=== PATIENT | male | born 1965 | race Caucasian/White ===

== ENCOUNTER 2024-01-27 12:52 | Outpatient (CLI) | payer OTHER, SELFPAY ==
--- OUTSIDE RECORDS SUMMARY | 2024-01-27 13:09 | XMS_ITS | Data Portability ---
Author Organization [place] [employer] [place] [employer], Main Office Address [address] [place] [address] Assessment Encounter Date Assessment Date Assessment LastModified by Organization Details LastModified Time 08/31/2022 08/31/2022 His last A1c was 5.2 he was 6 months ago he states with his insurance plan they will only let him do blood work once a year I will obtain a CT scan of the abdomen and pelvis will try to get him approved for Ozempic if we do I would like to stop his so far urea and see him in 4 weeks if he is not improved I will see him in 4 months will get the records from his previous physician richard Not available 08/31/2022 22:34:15 09/17/2022 09/17/[address] scans could be from polycystic kidney I will check with Renal see me in 3 months [email or web address] Not available 09/17/2022 16:04:17 12/23/2022 12/23/2022 Will continue current therapy will follow-up with me in 4-6 months. Chronic medical problems appear stable [email or web address] Not available 12/24/2022 15:09:39 Plan of Treatment Reminders Order Date Submit Date Provider Last Modified By Organization Details Last Modified Time Details Appointments None recorded. Lab None recorded. Referral None recorded. Procedures None recorded. Surgeries None recorded. Imaging CT, abdomen + pelvis, w/ contrast 2022 023 [facility], [address] [place] [address] [place], [address], 12:38:54 Medication Orders Ozempic 0.25 mg or 0.5 mg (2 mg/3 mL) subcutaneou s pen injector 2022 023 [email or web address] [facility] [place], [address], 3 15:46:46 Ozempic 1 mg/dose (4 mg/3 mL) subcutaneou s pen injector [address] [facility] [address] [place], [address], 3 15:09:06 lisinopril 10 mg tablet [address] [facility] [address] [place], [address], 3 11:12:49 omeprazole 40 mg capsule,del ayed release [address] [facility] [address] [place], [address], 3 11:12:49 Patient TargetsNo targets recorded. Patient InstructionsNo instructions recorded. Reason for Referral None Reported. Results Created Date Observation Date Name Description Value Unit Range Abnormal Flag Note LastModifiedBy Organization Detail LastModifiedTime 09/07/1909/06/2022 CREAT ININE , I-STA T creatinine 1.3 mg/dL 0.6-1. 3 Perfo rmed at: [facility] [address] [facility] [address] Not Available [facility] (Lab) [address] [place], [address], 09/06/2022 14:16:49 09/07/[address], abdom en + pelvi s, w/ contr ast [facility] [address] [place] [address] Patien t Name: LAUREEN GERONIMORACHEL ion #: [id number] Sex: M : 1965 3 0 Dictat ed By: Marco Antonio gibson Attend ing Physic andrew: MARCO ANTONIO KIM Orderi ng Physic andrew: MARCO ANTONIO KIM Exam Date: 2022 09:53 AM Exam Name: CT ABDOME N/PELV IS W Admitt ing Diagno sis(es ): CLINIC AL INFORM ATION: Abdomi nal pain and bloati ng. TECHNI QUE: Axial CT images of the abdome n and pelvis were obtain ed after the uneven tful admini strati on of 100 mL Isovue [address] Patien t also ingest ed [address] prior to the examin ation. Abdullahi l and sagitt al reform atted images were obtain ed, review ed, and stored . One or more of the follow ing dose reduct ion techni ques were used: Automa nina exposu re contro l. Adjust ment of mA and/or kV accord ing to patien t size. CTDIvo l = 15.87 mGy DLP = 1031.4 mGy-cm COMPAR KASHIF: Prior CT of the chest, abdome n, and pelvis dated 03/24/19 12. FINDIN GS: Lung bases: Lung bases are clear. Liver: Hepati c steato sis. Biliar y: Small calcif ied gallst ones layeri ng depend ently at the gallbl adder neck. Spleen : Unrema rkable . Pancre as: Unrema rkable . No inflam matory change s, ductal dilata tion, or mass identi fied. Adrena l glands : Unrema rkable . No mass. Kidney s: No hydron ephros is. Multip le bilate ral renal cysts, with the larges t at the inferi or pole of the right kidney measur ing up to 8.[address] dimens ion. Aorta/ Vascul ar: No aneury sm or signif icant calcif icatio n. Retrop eriton eum: No mass or lympha denopa thy. Bowel/ mesent gus: No small bowel obstru ction. No free air or free fluid. Append ix is normal . Scatte red coloni c divert icula withou t adjace nt inflam matory change s to sugges t divert iculit is. Pelvic organs : Grossl y unrema rkable . Bladde r: Unrema rkable . No mass. Abdomi nal wall: No mass or hernia . Bones: No fractu re or focal intrao sseous lesion . Mild grade 1 bhavana listhe sis Page 1 [facility] [address] [place] [address] Patien t Name: RACHEL MOREJON ion #: [id number] Sex: M : 1965 3 0 Dictat ed By: Marco Antonio gibson Attend ing Physic andrew: MELVA JONES Orderi Physic andrew: MARCO ANTONIO KIM Exam Date: 2022 09:53 AM Exam Name: CT ABDOME N/PELV IS W Admitt ing Diagno sis(es ): of L5 on S1 with chroni c bilate ral pars defect s at L5. IMPRES BRE: 1. Cholel ithias is. 2. Bilate ral renal cysts. 3. Hepati c steato sis. 4. Coloni c divert iculos is with no CT eviden ce for divert iculit is. 5. Additi onal nonacu te findin gs as detail ed above. Electr onical ly Signed by: Marco Antonio gibson at 2022 11:36: 36 AM Page 2 [email or web address] [facility] (Imaging) [address] [place], [address], 09/09/2022 12:01:37 09/14/19 23 05/26/2016 CT, chest , w/o contr ast No observ ation record ed. [address] [facility] [address], [place], [address], 09/17/2022 14:01:39 Result Notes None recorded. Problems Name Problem SNOMED Code Status Onset Date Resolution Date Notes Provider Name and Address Organization Details Recorded Time Abdominal pain 15815293 Active 2022 Not Available [employer] 16:58:45 Type 2 diabetes mellitus without complication 344662352 Active 2022 Not Available [facility] 3 16:58:46 Essential hypertension 35960441 Active 2022 Not Available [facility] 3 16:58:46 Hyperlipidemi a 38160919 Active 2022 Not Available [facility] 3 16:58:46 Anxiety 91273000 Active 2022 Not Available [facility] 3 16:58:46 Cyst of kidney 308999576 Active 2022 Not Available [facility] 3 16:58:46 Problem Notes None recorded. Procedures Surgical History Date Name Laterality Status Provider Name and Address Organization Details Recorded Time Sinus Surgery completed CJ Bella [employer] [place] [employer] [facility] 08/31/2022 14:43:27 Neck Surgeries completed CJ Bella [place] [employer] [place] [employer] [facility] 08/31/2022 14:43:37 Colonoscopy completed CJ Bella [place] [employer] [place] [employer] [facility] 08/31/2022 14:43:57 Endoscopy completed CJ Bella [employer] [facility] 08/31/2022 14:44:09 Shoulder completed Nicole Velasquez RASHAADRomel [employer] [facility] 08/31/2022 14:44:19 Imaging Results Imaging Date Name Status LastModified by Organiz ation Details LastModified Time 09/06/2022 CT, abdomen + pelvis, w/ contrast completed [email or web address] [facility] (Imaging) [address] [place], [address], 09/09/2022 12:01:37 05/26/2016 CT, chest, w/o contrast completed [email or web address] [facility] [address] [facility], [place], [address], 09/17/2022 14:01:39 Procedure Notes None recorded. Medical Equipment None Reported. Allergies No known drug allergies Medications Name Sig Start Date Stop Date Status Note LastModified by Organization Details LastModified Time metformin 500 mg tablet Take 1 tablet twice a day by oral route. 12/23 completed Not Available Not Available Not Available hydrocodone 5 mg-acetamin ophen 325 mg tablet 08/31 completed Not Available Not Available Not Available glipizide 10 mg tablet Take 1 tablet twice a day by oral route. 12/23 completed Not Available Not Available Not Available omeprazole 40 mg capsule,del ayed release Take 1 capsule every day by oral route. 2022 active Not Available Not Available Not Avai lable amlodipine 10 mg tablet TAKE 1 TABLET BY MOUTH DAILY 11/08 completed Not Available Not Available Not Available lisinopril 10 mg tablet Take 1 tablet every day by oral route. 2022 active Not Available Not Available Not Avai lable lorazepam 1 mg tablet Take 1 tablet 3 times a day by oral route for 30 days. active Not Available Not Available No t Available fluticasone propionate 50 mcg/actuati on nasal spray,suspe nsion USE 2 SPRAY(S) IN EACH NOSTRIL ONCE DAILY active Not Available Not Available No t Available Ozempic 1 mg/dose (4 mg/3 mL) subcutaneou s pen injector Inject by subcutane ous route for 28 days. active Not Available Not Available No t Available Ozempic 0.25 mg or 0.5 mg (2 mg/3 mL) subcutaneou s pen injector INJECT 0.5MG WEEKLY FOR 4 WEEKS. 12/23 completed Not Available Not Available Not Available Vitals Date Recorded Body weight Body mass index (BMI) Body height Body temperature Heart rate Systolic blood pressure Diastolic blood pressure Provider Name and Address Organization Details Last Updated DateTime 3 399786. 13 g 29.1 kg/m2 195.58 cm 99.3 [degF] 77 /min 122 mm[Hg] 82 mm[Hg] CJ Bella Myrio [employer] 3 14:47:31 Date Recorded Body height Body mass index (BMI) Body weight Body temperature Heart rate Systolic blood pressure Diastolic blood pressure Provider Name and Address Organization Details Last Updated DateTime 3 195.58 cm 28.9 kg/m2 150600. 54 g 97.2 [degF] 74 /min 122 mm[Hg] 74 mm[Hg] CJ Bella [employer] [facility] [employer] 3 13:09:35 Date Recorded Body height Body mass index (BMI) Body weight Body temperature Heart rate Systolic blood pressure Diastolic blood pressure Provider Name and Address Organization Details Last Updated DateTime 3 195.58 cm 27.5 kg/m2 800359. 43 g 98.2 [degF] 82 /min 126 mm[Hg] 74 mm[Hg] Yanique Montemayor, [facility] [employer] 3 15:49:41 Social History Question Answer Notes LastModified by Organizat ion Details LastModified Time Tobacco Smoking Status Never Smoker CJ Bella, [facility] [employer] 08/31/2022 14:40:55 Do You Have An Advance Directive? No [email or web address] Information not available 08/31/2022 What Is Your Level Of Alcohol Consumption? Occasional [email or web address] Information not available 08/31/2022 Is Blood Transfusion Acceptable In An Emergency? Yes [email or web address] Information not available 08/31/2022 What Is Your Level Of Caffeine Consumption? Moderate [email or web address] Information not available 08/31/2022 What Is Your Code Status? DNI [email or web address] Information not available 08/31/2022 In The 14 Days Before Symptom Onset, Have You Had Close Contact With A Laboratory-confi rmed COVID-19 While That Case Was Ill? No [email or web address] Information not available 08/31/2022 In The 14 Days Before Symptom Onset, Have You Had Close Contact With A Person Who Is Under Investigation For COVID-19 While That Person Was Ill? No [email or web address] Information not available 08/31/2022 Are You Currently Employed? No RETIRED Information not available 08/31/2022 What Type Of Diet Are You Following? REGULAR [email or web address] Information not available 08/31/2022 What Is The Highest Grade Or Level Of School You Have Completed Or The Highest Degree You Have Received? OL96742-2 [email or web address] Information not available 08/31/2022 Have There Been Any Changes To Your Family Or Social Situation? No [email or web address] Information not available 08/31/2022 What Is The Fluoride Status Of Your Home? Unknown [email or web address] Information not available 08/31/2022 Do You Use Insect Repellent Routinely? No [email or web address] Information not available 08/31/2022 Where Do You Live? SingleLevelHouse [email or web address] Information not available 08/31/2022 Do You Have A Medical Power Of Mixing And Dispensing Supervisor? No [email or web address] Information not available 08/31/2022 What Was The Date Of Your Most Recent Tobacco Screening? 12/23/2022 [email or web address] Information not available 12/23/2022 How Many Children Do You Have? 0 [email or web address] Information not available 08/31/2022 Do You Have Any Pets? Yes [email or web address] Information not available 08/31/2022 What Is Your Relationship Status? Information not available 08/31/2022 Do You Use Your Seat Belt Or Car Seat Routinely? Yes [email or web address] Information not available 08/31/2022 Do You Have Smoke And Carbon Monoxide Detectors In Your Home? Yes [email or web address] Information not available 08/31/2022 Are You Passively Exposed To Smoke? No [email or web address] Information not available 08/31/2022 Do You Feel Stressed (tense, Restless, Nervous, Or Anxious, Or Unable To Sleep At Night)? [id number] [email or web address] Information not available 08/31/2022 Do You Use Any Illicit Or Recreational Drugs? No [email or web address] Information not available 08/31/2022 Do You Use Sunscreen Routinely? Yes [email or web address] Information not available 08/31/2022 Have You Recently Traveled Abroad? No [email or web address] Information not available 08/31/2022 Do You Have Any Dietary Restrictions? No [email or web address] Information not available 08/31/2022 Do You Or Have You Ever Used Any Other Forms Of Tobacco Or Nicotine? No [email or web address] Information not available 08/31/2022 Sex: Male Functional Status Question Answer Note LastModified by Organization D etails LastModified Time What is your exercise level? Moderate [email or web address] Information not available 08/31/2022 Mental Status None recorded. Family History Relationship Description Onset Age of this Age Resolved Age Notes LastModified by Organization Details LastModified Time Maternal Grandmother Family history of malignant neoplasm [email or web address] Not available 08/14 14:35:40 Maternal Grandmother Aneurysm [email or web address] Not available 0 08/31/2022 14:36:02 Mother Family history of malignant neoplasm [email or web address] Not available 08/14 14:35:40 Father Family history of malignant neoplasm [email or web address] Not available 08/14 14:35:40 Maternal Grandfather Diabetes mellitus [email or web address] Not available 08/14 14:36:19 Maternal Grandfather Heart disease [email or web address] Not available 08/14 14:36:29 Maternal Grandfather Myocardial infarction [email or web address] Not available 14:36:38 Medical History Condition Response GI PROBLEMS Y DIABETES, TYPE Y SHINGLES Y HAVE YOU BEEN HOSPITALIZED OR SEEN IN [facility] ER IN THE PAST YEAR ? N HYPERTENSION Y GI Y Past Encounters Encounter ID Performer Location Encounter Start Date Encounter Closed Date Diagnosis/Indication Diagnosis SNOMED-CT Code Diagnosis ICD10 Code [id number] Preet Kim MD [facility] Internal Med Rosalie khan [facility] [address] [place] [address] 08/31/2022 14:21:23 08/31/2022 15:45:23 Abdominal pain 70696834 R10.9 Type 2 kennedy betes mellitus without complication 625381527 E11.9 Essential hypertension 57693881 I10 Hyperlipidemia 94027426 E78.5 Anxiety 18989169 F41.9 [id number] Preet Kim MD [facility] Internal Med [facility] [address] [facility] [address] [place] [address] 09/17/2022 12:51:35 09/17/2022 14:17:05 Essential hypertension 95100932 I10 Hyperlipidemia 66160602 E78.5 [id number] Preet Kim MD [facility] [address] [place] [address] 12/23/2022 15:31:48 12/23/2022 16:46:35 Type 2 diabetes mellitus without complication 524073450 E11.9 Renewal of prescription 280851596 Z76.0 Anxiety 19707777 F41.9 Essential hypertension 98212534 I10 Hyperlipidemia 43848224 E78.5 Health Concerns Section Related Observation LastModified by Organization Detai ls LastModified Time None Recorded Concern Status LastModified by Organization Details LastModified Time None Recorded Advance Directives Directive N: Payers Encounter Date Sequence Insurance Name Policy Number Policy Moreira Covered Member ID Moreira Member ID Guarantor Name 08/31/2022 1 [place] Rachel Gordillo [id number] Rachel Gordillo 09/17/2022 1 [place] Rachel Celeste Duy [id number] Rachel Gordillo 12/23/2022 1 [place] Rachel Celeste Duy [id number] Rachel Gordillo Notes Date Note Type Note Provider Name and Address Organization Details Recorded Time 08/31/2022 text/html 56-year-old with a history of hypertension hyperlipidemia type 2 diabetes comes in to establish care he has also been him some abdominal pain for several months and seems to be just above the umbilicus hurts more when he does sit-ups buttock and as some consistent features to it as well has a history of anxiety that is been treated successfully. Medications lorazepam 1 mg p.r.n. omeprazole 40 mg daily patient has had upper and lower endoscopies in the last couple years which would allegedly unremarkable glipizide 10 mg b.i.d. metformin 500 b.i.d. lisinopril 10 mg daily. Allegedly patient has a history of polycystic kidney disease but cannot elaborate surgery sinus surgery colonoscopy upper endoscopy and neck surgery so shoulder surgery as well on the right. Family history is significant for endometrial cancer in mother father had some type of a brain lesion. 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 [employer] [facility] 12/24/2022 15:09:56
[2024-01-27 13:18] LABS: Hematocrit 39.5 % (42.0-52.0); Hemoglobin 13.7 g/dL (14.0-18.0); Mean Corpuscular HGB Conc 34.7 g/dl (32-36); Mean Corpuscular Hemoglobin 33.5 pg (26-34); Mean Corpuscular Volume 96.6 fl (80-100); Mean Platelet Volume 9.6 fl (7.4-10.4); Platelet Count Result 189 k/mm3 (150-375); Red Blood Count 4.09 M/mm3 (4.6-6.20); Red Cell Distribution Width 12.1 % (11.5-14.5)
[2024-01-27 13:28] LABS: Albumin Level 4.7 g/dL (3.5-5.1); Anion Gap 4 mmol/L (4-12); Blood Urea Nitrogen 24 mg/dL (9-20); Calcium 9.8 mg/dL (8.4-10.2); Carbon Dioxide 30 mmol/L (22-30); Chloride 104 mmol/L (98-107); Estimated Glomerular Filt Rate 52; Glucose 92 mg/dL (65-110); Potassium 4.6 mmol/L (3.4-5.0); Sodium 138 mmol/L (137-145)
[2024-01-27 13:58] LABS: Prealbumin 33.2 mg/dL (17.6-36.0)
[2024-01-27 14:40] LABS: Hemoglobin A1C 4.9 % (<5.7)
[2024-01-27 14:47] LABS: Iron 151 ug/dL (49-181)
[2024-02-02 05:38] LABS: Vitamin B1 19 nmol/L (8-30)
== END 2024-01-27 12:53 | disposition home or self-care (01) ==
PROVIDERS: Visit Provider Surgery Plastic and Reconstructive Surgery
DX: R63.4 Abnormal weight loss (principal)
CPT/HCPCS: 36415; 80048; 82040; 83036; 83540; 84134; 84425; 85027